=== PATIENT | female | born 1930 | race Caucasian/White ===

== ENCOUNTER 2018-06-11 00:07 | Emergency (ER) | payer MEDICARE, MEDICAID ==
--- NOTE | 2018-06-11 01:24 | ED ---
Upper Extremity Pain - HPI Summary HPI Summary: 88-year-old female presents with left shoulder injury two days ago. There is an increasing swelling to left shoulder. Is not blood thinners. She fell 2 days ago. No other apparent injury. Information is provided by EMS as has patient has dementia. LEVEL 5 [place] due to dementia. - History of Current Complaint Chief Complaint: EDExtremityUpper Stated Complaint: "BRUISE ON SHOULDER" PER EMS Time Seen by Provider: 06/11/18 00:48 - Allergies/Home Medications Allergies/Adverse Reactions: Allergies Allergy/AdvReac Type Severity Reaction Status Date / Time No Known Allergies Allergy Verified 08/14/13 12:18 PMH/Surg Hx/FS Hx/Imm Hx Endocrine/Hematology History: Reports: Hx Diabetes Denies: Hx Anticoagulant Therapy Cardiovascular History: Reports: Hx Hypertension Infectious Disease History: No Infectious Disease History: Denies: Traveled Outside the [place] in Last 30 Days - Family History Known Family History: Positive: Non-Contributory - Social History Alcohol Use: None Substance Use Type: Reports: None Smoking Status (MU): Unknown if Ever Smoked Review of Systems Negative: Fever Negative: Chest Pain Negative: Shortness Of Breath Positive: Other - bruising left shoulder All Other Systems Reviewed And Are Negative: Yes Physical Exam Triage Information Reviewed: Yes Vital Signs On Initial Exam: Initial Vitals Temp Pulse Resp BP Pulse Ox 98.1 F 64 14 145/58 93 06/11/18 00:16 06/11/18 00:16 06/11/18 00:16 06/11/18 00:16 06/11/18 00:16 Vital Signs Reviewed: Yes Appearance: Positive: Well-Appearing Skin: Positive: Warm, Dry, Other - ecchymosis to left shoulder Head/Face: Positive: Normal Head/Face Inspection Eyes: Positive: Normal, Conjunctiva Clear ENT: Positive: Pharynx normal Respiratory/Lung Sounds: Positive: Clear to Auscultation, Breath Sounds Present Cardiovascular: Positive: Normal, RRR Musculoskeletal: Positive: Other - good pulses, nontender left shoulder Neurological: Positive: Normal Psychiatric: Positive: Normal Diagnostics - Vital Signs Vital Signs Temp Pulse Resp BP Pulse Ox 06/11/18 00:16 98.1 F 64 14 145/58 93 - Laboratory Lab Statement: Any lab studies that have been ordered have been reviewed, and results considered in the medical decision making process. - Radiology shoulder Radiology Interpretation Completed By: Radiologist Summary of Radiographic Findings: distal clavicle fracture Course/Dx - Course Course Of Treatment: 88-year-old female presents with left shoulder injury two days ago. There is an increasing swelling to left shoulder. Is not blood thinners. She fell 2 days ago. No other apparent injury. Information is provided by EMS as has patient has dementia. LEVEL 5 [place] due to dementia. On exam has tender has ecchymosis noted left shoulder. Nontender. Patient continues to sleep in the room. X-ray shows a distal clavicle fracture. Gave a sling. Told to ice. Patient will be discharged back to [facility]. - Diagnoses Differential Diagnosis/HQI/PQRI: Positive: Fracture (Closed), Strain, Sprain Provider Diagnoses: Closed fracture of distal clavicle Discharge - Sign-Out/Discharge Documenting (check all that apply): Patient Departure Patient Received Moderate/Deep Sedation with Procedure: No - Discharge Plan Condition: Good Disposition: INTERMEDIATE FACILITY Patient Education Materials: Clavicle Fracture (ED) Referrals: Brandi Bhatt DO [Primary Care Provider] - Additional Instructions: ice can use sling for comfort as needed take tyenlol as needed for pain Return to ED if develop any new or worsening symptoms - Billing Disposition and Condition Condition: GOOD Disposition: [facility]
[2018-06-11 03:51] VITALS: BP 162/62
== END 2018-06-11 03:51 ==
LOC: ED 00:07
DX: S42.032A Displaced fracture of lateral end of left clavicle, initial encounter for closed fracture (principal); X58.XXXA Exposure to other specified factors, initial encounter; I10 Essential (primary) hypertension; E11.9 Type 2 diabetes mellitus without complications
CPT/HCPCS: 99283